=== PATIENT | male | born 1990 | race American Indian/Alaskan Native ===

== ENCOUNTER 2018-12-12 15:43 | Emergency (ER) | payer SELFPAY ==
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
[2018-12-12 15:59] VITALS: BP 173/82
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
[2018-12-12] MEDS ORDERED: ONDANSETRON 4 MG ODT TAB PO ONE (19:01)
[2018-12-12] MEDS ORDERED: oxyCODONE /ACETAMINOPHEN 5-325MG TAB PO ONE (19:01)
[2018-12-12] MEDS ORDERED: IBUPROFEN 600 MG TAB PO ONE (19:01)
[2018-12-12] MEDS ORDERED: CYCLOBENZAPRINE 10 MG TAB PO ONE (19:01)
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
== END 2018-12-12 20:30 | disposition home or self-care (01) ==
LOC: ED 15:43
DX: S43.402A Unspecified sprain of left shoulder joint, initial encounter (principal); M62.838 Other muscle spasm; I10 Essential (primary) hypertension; F17.200 Nicotine dependence, unspecified, uncomplicated; Z90.49 Acquired absence of other specified parts of digestive tract; Z79.899 Other long term (current) drug therapy; V47.5XXA Car driver injured in collision with fixed or stationary object in traffic accident, initial encounter; Y93.89 Activity, other specified; Y92.410 Unspecified street and highway as the place of occurrence of the external cause; Y99.8 Other external cause status
CPT/HCPCS: 72040; Q0162